=== PATIENT | male | born 1955 | race Two or more races ===

== ENCOUNTER 2021-02-18 07:29 | Day surgery (SDC) | payer OTHER | END 2021-02-18 13:15 | disposition home or self-care (01) | LOC: AMB-ENDOS 07:29 | PROVIDERS: ATTEND Colon & Rectal Surgery | DX: D12.7 Benign neoplasm of rectosigmoid junction (principal); D12.8 Benign neoplasm of rectum; Z20.822 Contact with and (suspected) exposure to COVID-19; K64.2 Third degree hemorrhoids ==